=== PATIENT | male | born 1955 | race Caucasian/White ===

== ENCOUNTER 2021-05-15 15:27 | Observation (INO) | payer MEDICARE, BC ==
[2021-05-15 15:48] VITALS: TEMP 97.7
--- NOTE | 2021-05-15 15:53 | ED ---
General Adult HPI - General Chief complaint: Syncope Stated complaint: Syncope Time Seen by Provider: 05/15/21 15:52 Source: patient, EMS Mode of arrival: EMS Limitations: no limitations - History of Present Illness Initial comments: Patient presents to the ED by ambulance for evaluation. Patient states that he felt like he was having a "panic attack", then became lightheaded and had a syncopal episode just prior to arrival to the ED today. Patient states that he leaned up against his truck, and he states that his nephew caught him when he had his syncopal episode, and he denies falling or sustaining any trauma. Patient states that he still feels somewhat lightheaded, but he states that his symptoms have now improved. Patient states that he does also still feel anxious. Patient admits to taking "2 hits of a joint" about 45 minutes prior to his syncopal episode today. Patient also admits to having a mild headache at this time. Patient denies fever or chills, focal numbness/weakness/neuro deficit, visual changes, speech difficulty, neck/back/extremity pain, chest pain, dyspnea, cough or cold symptoms, palpitations, nausea/vomiting/d iaphoresis, abdominal pain, diarrhea, bloody or melanotic stool, dysuria or urinary symptoms, leg or calf swelling or pain, alcohol use, any other illicit drug use, medication abuse or overdose, or any other symptoms or complaints. - Related Data Home Medications Medication Instructions Recorded Confirmed ALPRAZolam [Xanax] 0.25 mg PO QID PRN 05/15/21 05/15/21 Aspirin EC [Ecotrin Low Dose] 81 mg PO HS 05/15/21 05/15/21 Carvedilol [Coreg] 12.5 mg PO BID 05/15/21 05/15/21 FLUoxetine HCL [PROzac] 40 mg PO DAILY 05/15/21 05/15/21 Levothyroxine Sodium [Synthroid] 50 mcg PO DAILY 05/15/21 05/15/21 Mirtazapine [Remeron] 30 mg PO HS 05/15/21 05/15/21 Rosuvastatin Calcium [Crestor] 5 mg PO HS 05/15/21 05/15/21 lisinopriL 40 mg PO DAILY 05/15/21 05/15/21 Allergies Allergy/AdvReac Type Severity Reaction Status Date / Time codeine Allergy Unknown Verified 05/15/21 17:49 Iodine and Iodide Containing Allergy Unknown Verified 05/15/21 17:49 Produc Review of Systems ROS Statement: Those systems with pertinent positive or pertinent negative responses have been documented in the HPI. ROS Other: All systems not noted in ROS Statement are negative. Past Medical History Past Medical History: Hyperlipidemia, Hypertension, Thyroid Disorder History of Any Multi-Drug Resistant Organisms: None Reported Additional Past Surgical History / Comment(s): colon surgery, ruptured colon Past Psychological History: Anxiety, Depression Smoking Status: Never smoker Past Alcohol Use History: Occasional Past Drug Use History: Marijuana General Exam Limitations: no limitations General appearance: alert, in no apparent distress Head exam: Present: atraumatic, normocephalic Eye exam: Present: normal appearance, PERRL, EOMI ENT exam: Present: mucous membranes moist Neck exam: Present: other (Trachea is in midline). Absent: tenderness, meningismus Respiratory exam: Present: normal lung sounds bilaterally. Absent: respiratory distress, wheezes, rales, rhonchi, stridor Cardiovascular Exam: Present: normal rhythm, bradycardia, normal heart sounds, other (Normal radial pulses bilaterally) GI/Abdominal exam: Present: soft. Absent: distended, tenderness, guarding Extremities exam: Present: full ROM. Absent: tenderness, pedal edema, calf tenderness Back exam: Absent: tenderness Neurological exam: Present: alert, oriented X3, CN II-XII intact. Absent: motor sensory deficit Psychiatric exam: Present: anxious Skin exam: Present: warm, dry, intact, normal color Course Vital Signs 05/15/21 05/15/21 15:43 17:55 Temperature 97.7 F Pulse Rate 49 L 57 L Respiratory 15 16 Rate Blood Pressure 93/57 117/65 O2 Sat by Pulse 96 96 Oximetry - Reevaluation(s) Reevaluation #1: 05/15/21 18:17 Case, H&P, test results and ED management thus far were discussed with Dr. Walker. She accepts hospital admission. She agrees with cardiology consultation. She has no further recommendations at this time. 05/15/21 18:30 Patient states that his symptoms have improved, and he denies development of any new symptoms while in the ED. Patient remains in sinus bradycardia on the doctor of dental medicine with heart rate now in the 50s. Patient's blood pressure has improved while in the ED. Patient remains alert and breathing comfortably. Patient is aware of his test results, and he agrees with hospital admission at this time. EKG Findings - EKG Comments: EKG Findings:: Sinus bradycardia with first-degree AV block, ventricular rate of 45 bpm, DE interval of 214 ms, normal QRS duration, normal QT interval, no ectopy, normal axis, no ST or T-wave abnormality Medical Decision Making - Medical Decision Making Patient's labs are fairly unremarkable. Given the patient's syncope and sinus bradycardia, will admit the patient to the hospital for cardiac monitoring given concern for symptomatic bradycardia. Patient does report being on Coreg, which may be the cause of his sinus bradycardia. Will hold the patient's Coreg for admission. Dr. Walker has accepted hospital admission. A cardiology consultation has been placed. - Lab Data Result diagrams: 05/15/21 16:28 05/15/21 16:28 Lab Results 05/15/21 05/15/21 05/15/21 Range/Units 16:28 16:28 16:28 WBC 7.0 (3.8-10.6) k/uL RBC 3.97 L (4.30-5.90) m/uL Hgb 13.5 (13.0-17.5) gm/dL Hct 39.5 (39.0-53.0) % MCV 99.5 (80.0-100.0) fL MCH 34.0 (25.0-35.0) pg MCHC 34.1 (31.0-37.0) g/dL RDW 13.3 (11.5-15.5) % Plt Count 232 (150-450) k/uL MPV 7.8 Neutrophils % 74 % Lymphocytes % 18 % Monocytes % 5 % Eosinophils % 2 % Basophils % 0 % Neutrophils # 5.2 (1.3-7.7) k/uL Lymphocytes # 1.2 (1.0-4.8) k/uL Monocytes # 0.3 (0-1.0) k/uL Eosinophils # 0.2 (0-0.7) k/uL Basophils # 0.0 (0-0.2) k/uL PT 10.9 (9.0-12.0) sec INR 1.0 (<1.2) APTT 19.5 L (22.0-30.0) sec Sodium 138 (137-145) mmol/L Potassium 4.4 (3.5-5.1) mmol/L Chloride 106 (98-107) mmol/L Carbon Dioxide 23 (22-30) mmol/L Anion Gap 9 mmol/L BUN 26 H (9-20) mg/dL Creatinine 1.20 (0.66-1.25) mg/dL Est GFR (CKD-EPI)AfAm 74 (>60 ml/min/1.73 sqM) Est GFR (CKD-EPI)NonAf 64 (>60 ml/min/1.73 sqM) Glucose 116 H (74-99) mg/dL Calcium 9.1 (8.4-10.2) mg/dL Magnesium 1.6 (1.6-2.3) mg/dL Total Bilirubin 0.7 (0.2-1.3) mg/dL AST 26 (17-59) U/L ALT 22 (4-49) U/L Alkaline Phosphatase 66 (38-126) U/L Troponin I (0.000-0.034) ng/mL NT-Pro-B Natriuret Pep pg/mL Total Protein 6.6 (6.3-8.2) g/dL Albumin 3.9 (3.5-5.0) g/dL Urine Color Urine Appearance (Clear) Urine pH (5.0-8.0) Ur Specific [place] (1.001-1.035) Urine Protein (Negative) Urine Glucose (UA) (Negative) Urine Ketones (Negative) Urine Blood (Negative) Urine Nitrite (Negative) Urine Bilirubin (Negative) Urine Urobilinogen (<2.0) mg/dL Ur Leukocyte Esterase (Negative) Serum Alcohol <10 mg/dL 05/15/21 05/15/21 05/15/21 Range/Units 16:28 16:28 17:59 WBC (3.8-10.6) k/uL RBC (4.30-5.90) m/uL Hgb (13.0-17.5) gm/dL Hct (39.0-53.0) % MCV (80.0-100.0) fL MCH (25.0-35.0) pg MCHC (31.0-37.0) g/dL RDW (11.5-15.5) % Plt Count (150-450) k/uL MPV Neutrophils % % Lymphocytes % % Monocytes % % Eosinophils % % Basophils % % Neutrophils # (1.3-7.7) k/uL Lymphocytes # (1.0-4.8) k/uL Monocytes # (0-1.0) k/uL Eosinophils # (0-0.7) k/uL Basophils # (0-0.2) k/uL PT (9.0-12.0) sec INR (<1.2) APTT (22.0-30.0) sec Sodium (137-145) mmol/L Potassium (3.5-5.1) mmol/L Chloride (98-107) mmol/L Carbon Dioxide (22-30) mmol/L Anion Gap mmol/L BUN (9-20) mg/dL Creatinine (0.66-1.25) mg/dL Est GFR (CKD-EPI)AfAm (>60 ml/min/1.73 sqM) Est GFR (CKD-EPI)NonAf (>60 ml/min/1.73 sqM) Glucose (74-99) mg/dL Calcium (8.4-10.2) mg/dL Magnesium (1.6-2.3) mg/dL Total Bilirubin (0.2-1.3) mg/dL AST (17-59) U/L ALT (4-49) U/L Alkaline Phosphatase (38-126) U/L Troponin I <0.012 (0.000-0.034) ng/mL NT-Pro-B Natriuret Pep 29 pg/mL Total Protein (6.3-8.2) g/dL Albumin (3.5-5.0) g/dL Urine Color Yellow Urine Appearance Clear (Clear) Urine pH 5.5 (5.0-8.0) Ur Specific [place] 1.022 (1.001-1.035) Urine Protein Trace H (Negative) Urine Glucose (UA) Trace H (Negative) Urine Ketones Negative (Negative) Urine Blood Negative (Negative) Urine Nitrite Negative (Negative) Urine Bilirubin Negative (Negative) Urine Urobilinogen <2.0 (<2.0) mg/dL Ur Leukocyte Esterase Negative (Negative) Serum Alcohol mg/dL - Radiology Data Radiology results: report reviewed (Chest x-ray: No acute process; noncontrast head CT: No acute intracranial process) Disposition Clinical Impression: Syncope, Marijuana abuse, Anxiety, Sinus bradycardia Disposition: ADMITTED IP TO THIS [facility] Condition: Stable Is patient prescribed a controlled substance at d/c from ED?: No Referrals: Nonstaff,Physician [REFERRING] - 1-2 days Time of Disposition: 18:23
[2021-05-15] MEDS ORDERED: SODIUM CHLORIDE 0.9% 1,000 ML IV STA (15:58)
[2021-05-15 17:23] LABS: Basophils % (A) 0 %; Eosinophils # (A) 0.2 k/uL (0-0.7); Eosinophils % (A) 2 %; HCT 39.5 % (39.0-53.0); HGB 13.5 gm/dL (13.0-17.5); Lymphocytes # (A) 1.2 k/uL (1.0-4.8); Lymphocytes % (A) 18 %; MCHC 34.1 g/dL (31.0-37.0); MCV 99.5 fL (80.0-100.0); Mean Platelet Volume 7.8; Monocytes # (A) 0.3 k/uL (0-1.0); Monocytes % (A) 5 %; Neutrophils # (A) 5.2 k/uL (1.3-7.7); Neutrophils % (A) 74 %; Platelet Count 232 k/uL (150-450); RBC 3.97 m/uL (4.30-5.90); RDW 13.3 % (11.5-15.5)
[2021-05-15 17:33] LABS: ALT 22 U/L (4-49); AST 26 U/L (17-59); African American GFR (CKD) 74 (>60 ml/min/1.73 sqM); Albumin 3.9 g/dL (3.5-5.0); Alcohol <10 mg/dL; Alkaline Phosphatase 66 U/L (38-126); Anion Gap 9 mmol/L; Blood Urea Nitrogen 26 mg/dL (9-20); Calcium 9.1 mg/dL (8.4-10.2); Carbon Dioxide 23 mmol/L (22-30); Chloride 106 mmol/L (98-107); Glucose 116 mg/dL (74-99); Magnesium 1.6 mg/dL (1.6-2.3); Non-African American GFR(CKD) 64 (>60 ml/min/1.73 sqM); Potassium 4.4 mmol/L (3.5-5.1); Sodium 138 mmol/L (137-145); Total Bilirubin 0.7 mg/dL (0.2-1.3); Total Protein 6.6 g/dL (6.3-8.2)
--- NOTE | 2021-05-15 17:34 | CT ---
EXAMINATION TYPE: CT brain wo con DATE OF EXAM: 05/15/2021 COMPARISON: None available HISTORY: Syncope. CT DLP: 1178.4 mGycm Automated exposure control for dose reduction was used. FINDINGS: No acute intracranial hemorrhage, mass effect, or midline shift. Ventricles are of normal size withou t hydrocephalus. Mild burden of decreased periventricular attenuation likely chronic small vessel isc hemic change. Preciado-white differentiation is preserved. No CT evidence of acute large vessel territori al ischemia. Calvarium appears intact. Post surgical changes of the right maxillary medial wall. Mastoid air cells are clear. Mild mucosal thickening of the right ethmoids and sphenoid sinus. Globes and orbits appea r symmetric and unremarkable. IMPRESSION: No acute intracranial process.
--- NOTE | 2021-05-15 17:36 | XR ---
EXAMINATION TYPE: XR chest 1V portable DATE OF EXAM: 05/15/2021 COMPARISON: NONE HISTORY: Syncope TECHNIQUE: Single frontal view of the chest is obtained. FINDINGS: There is no focal air space opacity, pleural effusion, or pneumothorax seen. The cardiac silhouette size is within normal limits. The osseous structures are intact. IMPRESSION: No acute process.
[2021-05-15 17:41] LABS: Prothrombin Time 10.9 sec (9.0-12.0)
[2021-05-15 17:46] LABS: Partial Thromboplastin Time 19.5 sec (22.0-30.0)
[2021-05-15 18:11] LABS: Appearance,Urine Clear (Clear); Bilirubin,Urine Negative (Negative); Blood,Urine Negative (Negative); Color,Urine Yellow; Glucose,Urine (UA) Trace (Negative); Ketones,Urine Negative (Negative); Leukocyte Esterase,Urine Negative (Negative); Nitrite,Urine Negative (Negative); PH, Urine 5.5 (5.0-8.0); Protein,Urine Trace (Negative); Specific Gravity,Urine 1.022 (1.001-1.035); Urobilinogen,Urine <2.0 mg/dL (<2.0)
[2021-05-15 18:32] LABS: Phencyclidine Screen,Urine Not Detected (NotDetected); Urn Cannabinoid Scrn Detected (NotDetected)
[2021-05-15 18:33] LABS: Amphetamine Screen,Urine Not Detected (NotDetected); Barbiturate Screen,Urine Not Detected (NotDetected); Benzodiazepines Screen,Urine Detected (NotDetected); Cocaine Screen,Urine Not Detected (NotDetected); Methadone Screen, Urine Not Detected (NotDetected); Opiate Screen,Urine Not Detected (NotDetected); Oxycodone Screen, Urine Not Detected (NotDetected); Tricyclic Antidepressant,Urine Not Detected (NotDetected)
[2021-05-15] MEDS ORDERED: ATORVASTATIN 10 MG TAB PO SCH (21:00)
[2021-05-15] MEDS ORDERED: MIRTAZAPINE 15 MG TAB PO SCH (21:00)
[2021-05-16] MEDS ORDERED: MELATONIN 3 MG TABLET PO SCH (01:00)
[2021-05-16] MEDS: ALPRAZolam 0.25 MG TAB PO PRN ×2 (01:32→13:03)
[2021-05-16] MEDS ORDERED: LEVOTHYROXINE 50 MCG TAB PO SCH (06:30)
[2021-05-16] MEDS ORDERED: SODIUM CHLORIDE 0.9% 1,000 ML IV STA (08:27)
[2021-05-16] MEDS ORDERED: FLUoxetine HCL 20 MG CAP PO SCH (09:00)
[2021-05-16] MEDS ORDERED: lisinopriL 20 MG TAB PO SCH ×2 (09:00)
[2021-05-16 09:09] LABS: Basophils # (A) 0.03 X 10*3/uL (0.00-0.10); Basophils % (A) 0.4 %; Eosinophils # (A) 0.35 X 10*3/uL (0.04-0.35); Eosinophils % (A) 4.5 %; HCT 36.9 % (39.6-50.0); Lymphocytes # (A) 2.47 X 10*3/uL (0.90-5.00); Lymphocytes % (A) 31.6 %; MCH 32.6 pg (27.0-32.0); MCHC 32.5 g/dL (32.0-37.0); MCV 100.3 fL (80.0-97.0); Mean Platelet Volume 10.9 fL (9.5-12.2); Monocytes % (A) 10.2 %; Neutrophils # (A) 4.12 X 10*3/uL (1.80-7.70); Neutrophils % (A) 52.7 %; Platelet Count 197 X 10*3/uL (140-440); RBC 3.68 X 10*6/uL (4.40-5.60); RDW 12.8 % (11.5-14.5); WBC 7.82 X 10*3/uL (4.50-10.00)
[2021-05-16 11:57] LABS: African American GFR (CKD) 73.6 (60.0-200.0); Albumin/Globulin Ratio 1.82 (1.60-3.17); Anion Gap 9.4 mmol/L (4.00-12.00); BUN/Creat Ratio 18.33 Ratio (12.00-20.00); Calcium 8.5 mg/dL (8.7-10.3); Carbon Dioxide 22.6 mmol/L (21.6-31.8); Globulin 2.2 g/dL (1.6-3.3); Non-African American GFR(CKD) 63.5 (60.0-200.0); Total Bilirubin 0.6 mg/dL (0.3-1.2); Total Protein 6.2 g/dL (6.2-8.2)
[2021-05-16 13:11] VITALS: BP 145/80; PULSE 67; RESP 12
--- NOTE | 2021-05-16 14:22 | CONS ---
CONSULTATION HISTORY OF PRESENT ILLNESS: Ramiro Hsieh is a gentleman with a history of anxiety disorder. This gentleman lives in the [place] area, but he came here to see his brother or a cousin who lives here in this area. While he was with his brother, he drank a few beers and then also did good 2 or 3 joints of marijuana. After that, he felt dizzy, lightheaded and had a near syncopal spell and came into the hospital. He appears to be dehydrated. Prior to this spell, he had a bout of anxiety and he is known to have anxiety, panic attacks from time to time. He has history of hypertension and hyperlipidemia. No evidence of any TN or CVA or diabetes. At the time of my evaluation is resting comfortably, has no chest pain, shortness of breath or palpitation. His episode of syncope and near syncope occurred in the setting of anxiety after hyperventilation and was also associated with some dehydration and after some drinking alcohol and more importantly 2 joints of marijuana. He has no orthostatic changes, is resting comfortably without symptoms. PAST MEDICAL HISTORY: 1. Hypertension. 2. Hyperlipidemia. 3. Anxiety disorder. 4. Hypothyroidism. MEDICATIONS: Medications at home include: Crestor 5 mg daily, aspirin 81 mg daily, lisinopril 40 mg daily. He also takes carvedilol 12.5 mg b.i.d. and Remeron. ALLERGIES: ALLERGIC TO CODEINE AND IODINE. PHYSICAL EXAMINATION: On examination, blood pressure is 118/70, pulse rate is 60 per minute. There are no orthostatic changes. HEENT unremarkable. Fundus not examined by me. Neck is supple. No JVD. I do not hear a carotid bruit. There is no thyromegaly. HEART exam reveals S1, S2 heard normally. No significant rub, murmur or gallop. LUNGS are clear. ABDOMEN is soft, nontender. Lower EXTREMITIES reveal palpable pulses. No edema. CENTRAL NERVOUS SYSTEM is normal. EKG revealed a sinus bradycardia and no acute changes. Heart rate is about 45 beats per minute. IMPRESSION: 1. Hypertension. 2. Hyperlipidemia. 3. History of anxiety disorder with panic attacks. 4. Episode of near syncope and dehydration. RECOMMENDATIONS: I would recommend that we hydrate him for the next 3 hours at 100 mL/hour normal saline, increase activity and he can be discharged and follow up with his physician in the [place] area. I am suggesting he should take lisinopril 20 mg b.i.d., discontinue altogether carvedilol and reintroduce it as an outpatient after evaluation by his physician. I explained this in detail to the patient. He can be discharged today. Thank you very much for the consult. REGI / QUETAN: [id number] /
--- NOTE | 2021-06-08 11:10 | P.HPIM ---
History of Present Illness H&P Date: 05/16/21 Chief Complaint: Dizziness Patient is a 66-year-old male with a known history of hypertension, hyperlipidemia, anxiety disorder and hypothyroidism presents to ER with complain ts of feeling dizzy and lightheaded and near syncopal episode. Patient states that he lives in the [place] area and he came to see his brother who lives in . While he was with his brother he drank a few beers and also smoked 2-3 joints of marijuana. Patient felt dizzy and lightheaded and also had a near syncopal episode and anxious. Patient does have history of anxiety and panic attacks. Otherwise patient denied any complaints of chest pain or shortness of breath.. On admission blood pressure was 93/57 pulse 49 and respiration 15 pulse ox 96% on room air. Laboratory data showed WBC 7.0 hemoglobin 13.5 and platelets 232 Sodium 139 potassium 4.4 chloride 106 BUN 26 and creatinine 1.2 Blood sugar is 116 Troponin x3 - proBNP 29 UA negative for infection and UDS is positive for benzodiazepines and marijuana serum alcohol level is less than 10 EKG showed sinus bradycardia with first-degree AV block Chest x-ray showed no acute process CT head showed no acute intracranial process Review of Systems Constitutional: Patient denies any fever or chills . No generalized weakness or weight loss. Abdomen: Patient denied nausea vomiting and diarrhea and abdominal pain. Cardiovascular: Patient denies any chest pain or short of breath no palpitations. Respiratory: patient denied any cough or sputum production. No shortness of breath Neurologic: Patient denied any numbness or tingling headache. Musculoskeletal: Patient denies any complaints of joint swelling or deformity. Skin: Negative Psychiatric: Negative Endocrine: No heat or cold intolerance. No recent weight gain. Genitourinary: No dysuria or hematuria. All other 14 point ROS negative except the above Past Medical History Past Medical History: Hyperlipidemia, Hypertension, Thyroid Disorder History of Any Multi-Drug Resistant Organisms: None Reported Additional Past Surgical History / Comment(s): colon surgery, ruptured colon Past Psychological History: Anxiety, Depression Smoking Status: Never smoker Past Alcohol Use History: Occasional Past Drug Use History: Marijuana Medications and Allergies Home Medications Medication Instructions Recorded Confirmed Type ALPRAZolam [Xanax] 0.25 mg PO QID PRN 05/15/21 05/15/21 History Aspirin EC [Ecotrin Low Dose] 81 mg PO HS 05/15/21 05/15/21 History FLUoxetine HCL [PROzac] 40 mg PO DAILY 05/15/21 05/15/21 History Levothyroxine Sodium [Synthroid] 50 mcg PO DAILY 05/15/21 05/15/21 History Mirtazapine [Remeron] 30 mg PO HS 05/15/21 05/15/21 History Rosuvastatin Calcium [Crestor] 5 mg PO HS 05/15/21 05/15/21 History lisinopriL [Zestril] 20 mg PO DAILY tab 05/16/21 Rx Allergies Allergy/AdvReac Type Severity Reaction Status Date / Time codeine Allergy Unknown Verified 05/15/21 17:49 Iodine and Iodide Containing Allergy Unknown Verified 05/15/21 17:49 Produc Physical Exam Vitals: Vital Signs Temp Pulse Resp BP Pulse Ox 05/16/21 06:55 56 L 18 101/64 97 05/16/21 00:00 64 16 96/66 98 05/15/21 21:13 64 16 107/69 95 05/15/21 17:55 57 L 16 117/65 96 05/15/21 15:43 97.7 F 49 L 15 93/57 96 Intake and Output 05/15/21 05/16/21 05/16/21 22:59 06:59 14:59 Other: Weight 97.522 kg PHYSICAL EXAMINATION: Patient is lying in the bed comfortably, no acute distress, awake alert and oriented.. HEENT: Normocephalic. Neck is supple. Pupils reactive. Nostrils clear. Oral cavity is moist. Neck reveals no JVD, carotid bruits, or thyromegaly. CHEST EXAMINATION: Trachea is central. Symmetrical expansion. Lung rush clear to auscultation and percussion. CARDIAC: Normal S1, S2 with no gallops. No murmurs ABDOMEN: Soft. Bowel sounds normal. No organomegaly. No abdominal bruits. Extremities: reveal no edema. No clubbing or cyanosis Neurologically awake, alert, oriented x3 with well-coordinated movements. No focal deficits noted Skin: No rash or skin lesions. Psychiatric: Cooperative. Nonsuicidal Musculoskeletal: No joint swelling or deformity. Normal range of motion. Results CBC & Chem 7: 05/16/21 04:33 05/16/21 04:33 Labs: Abnormal Lab Results - Last 24 Hours (Table) 05/15/21 05/15/21 05/15/21 Range/Units 16:28 16:28 16:28 RBC 3.97 L (4.30-5.90) m/uL Hgb (13.0-17.0) g/dL Hct (39.6-50.0) % MCV (80.0-97.0) fL MCH (27.0-32.0) pg Immature Gran # (0.00-0.04) X 10*3/uL APTT 19.5 L (22.0-30.0) sec BUN 26 H (9-20) mg/dL Glucose 116 H (74-99) mg/dL Urine Protein (Negative) Urine Glucose (UA) (Negative) U Benzodiazepines Scrn (NotDetected) U Marijuana (THC) Screen (NotDetected) 05/15/21 05/16/21 Range/Units 17:59 04:33 RBC 3.68 L (4.30-5.90) m/uL Hgb 12.0 L (13.0-17.0) g/dL Hct 36.9 L (39.6-50.0) % MCV 100.3 H (80.0-97.0) fL MCH 32.6 H (27.0-32.0) pg Immature Gran # 0.05 H (0.00-0.04) X 10*3/uL APTT (22.0-30.0) sec BUN (9-20) mg/dL Glucose (74-99) mg/dL Urine Protein Trace H (Negative) Urine Glucose (UA) Trace H (Negative) U Benzodiazepines Scrn Detected H (NotDetected) U Marijuana (THC) Screen Detected H (NotDetected) Assessment and Plan Assessment: Dizziness and near syncopal episode likely dehydration volume depletion along with anxiety episode. Hypotension and sinus bradycardia. Coreg is on hold Hypertension Hyperlipidemia Hypothyroidism Anxiety/depression and panic attacks Marijuana and benzodiazepine use DVT prophylaxis Plan: Patient will be continued on IV hydration and continue with lisinopril and Coreg pain is on hold. Cardiology was consulted due to near syncopal episode. Patient is otherwise improved symptomatically. Continue to follow closely.
--- NOTE | 2021-06-08 11:12 | P.DS ---
Providers Date of admission: 05/15/21 18:23 Expected date of discharge: 05/16/21 Attending physician: Rachel Walker MD Consults: 05/15/21 18:24 Consult Physician Urgent Consulting Provider: Joe Godoy Consult Reason/Comments: Syncope, sinus bradycardia Do you want consulting provider notified?: Yes Primary care physician: Jim Flor Hospital Course: Discharge diagnosis Dizziness and near syncopal episode likely dehydration volume depletion along with anxiety episode. Hypotension and sinus bradycardia. Coreg is on hold Hypertension Hyperlipidemia Hypothyroidism Anxiety/depression and panic attacks Marijuana and benzodiazepine use DVT prophylaxis Discharge diagnosis Patient is a 66-year-old male with a known history of hypertension, hyperl ipidemia, anxiety disorder and hypothyroidism presents to ER with complaints of feeling dizzy and lightheaded and near syncopal episode. Patient states that he lives in the [facility] and he came to see his brother who lives in . While he was with his brother he drank a few beers and also smoked 2-3 joints of marijuana. Patient felt dizzy and lightheaded and also had a near syncopal episode and anxious. Patient does have history of anxiety and panic attacks. Otherwise patient denied any complaints of chest pain or shortness of breath.. On admission blood pressure was 93/57 pulse 49 and respiration 15 pulse ox 96% on room air. Laboratory data showed WBC 7.0 hemoglobin 13.5 and platelets 232 Sodium 139 potassium 4.4 chloride 106 BUN 26 and creatinine 1.2 Blood sugar is 116 Troponin x3 - proBNP 29 UA negative for infection and UDS is positive for benzodiazepines and marijuana serum alcohol level is less than 10 EKG showed sinus bradycardia with first-degree AV block Chest x-ray showed no acute process CT head showed no acute intracranial process Patient was continued on IV hydration and continue with lisinopril and Coreg pain is on hold. Cardiology was consulted due to near syncopal episode. Patient is otherwise improved symptomatically. Discharge physical examination was done vitals reviewed. Patient Condition at Discharge: Stable Plan - Discharge Summary New Discharge Prescriptions: New lisinopriL [Zestril] 20 mg PO DAILY tab Continue Aspirin EC [Ecotrin Low Dose] 81 mg PO HS Mirtazapine [Remeron] 30 mg PO HS Levothyroxine Sodium [Synthroid] 50 mcg PO DAILY FLUoxetine HCL [PROzac] 40 mg PO DAILY Rosuvastatin Calcium [Crestor] 5 mg PO HS ALPRAZolam [Xanax] 0.25 mg PO QID PRN PRN Reason: Anxiety Discontinued lisinopriL 40 mg PO DAILY Carvedilol [Coreg] 12.5 mg PO BID Discharge Medication List ALPRAZolam [Xanax] 0.25 mg PO QID PRN 05/15/21 [History] Aspirin EC [Ecotrin Low Dose] 81 mg PO HS 05/15/21 [History] FLUoxetine HCL [PROzac] 40 mg PO DAILY 05/15/21 [History] Levothyroxine Sodium [Synthroid] 50 mcg PO DAILY 05/15/21 [History] Mirtazapine [Remeron] 30 mg PO HS 05/15/21 [History] Rosuvastatin Calcium [Crestor] 5 mg PO HS 05/15/21 [History] lisinopriL [Zestril] 20 mg PO DAILY tab 05/16/21 [Rx] Follow up Appointment(s)/Referral(s): Nonstaff,Physician [REFERRING] - 1-2 days Discharge Disposition: HOME SELF-CARE
== END 2021-05-16 13:23 | disposition home or self-care (01) ==
LOC: EC 15:27 → 6NMEDSUR 18:23
PROVIDERS: ADMIT Internal Medicine; ATTEND Internal Medicine
DX: R55 Syncope and collapse (principal); E86.0 Dehydration; F41.9 Anxiety disorder, unspecified; I95.9 Hypotension, unspecified; F41.0 Panic disorder [episodic paroxysmal anxiety]; R06.4 Hyperventilation; E78.5 Hyperlipidemia, unspecified; I10 Essential (primary) hypertension; R00.1 Bradycardia, unspecified; F32.9 Major depressive disorder, single episode, unspecified; I44.0 Atrioventricular block, first degree; F12.10 Cannabis abuse, uncomplicated; E03.9 Hypothyroidism, unspecified; Z79.890 Hormone replacement therapy; Z79.82 Long term (current) use of aspirin; Z79.899 Other long term (current) drug therapy; Z88.5 Allergy status to narcotic agent; Z91.048 Other nonmedicinal substance allergy status; Z87.19 Personal history of other diseases of the digestive system; Z98.890 Other specified postprocedural states
CPT/HCPCS: 96360; 99285; 36415; 93005; 83880; 80053 ×2; 83735; 84484 ×2; 85025 ×2; 85610; 85730; 81003; 80306; 71045; 70450; G0378 ×2; G0480; 80320